=== PATIENT | female | born 1990 | race Caucasian/White ===

== ENCOUNTER 2024-11-29 11:35 | Emergency (ER) | payer OTHER, SELFPAY ==
[2024-11-29 11:41] VITALS: BP 163/99
[2024-11-29 12:37] LABS: Hematocrit 40.8 % (37.0-47.0); Hemoglobin 14.4 g/dL (12.0-16.0); Mean Corp Hgb Conc. 35.3 g/dL (33.0-37.0); Mean Corpuscular Volume 87.9 fL (81.0-99.0); Nucleated Red Blood Cells % 0 %; Platelet Count 263 10^3/uL (130-400); Red Cell Dist. Width 11.7 % (11.5-14.5)
[2024-11-29 12:53] LABS: D-Dimer 0.53 ug/mlFEU (0.00-0.50)
[2024-11-29 12:55] LABS: ALT (SGPT) 15 U/L (0-35); AST (SGOT) 20 U/L (14-36); Albumin 4.8 g/dl (3.5-5.0); Alkaline Phosphatase 47 U/L (38-126); Blood Urea Nitrogen 14 mg/dl (7-17); Calcium 10.0 mg/dl (8.4-10.2); Carbon Dioxide 25 mmol/L (22-30); Chloride 106 mmol/L (98-107); Glucose 125 mg/dl (70-99); Potassium 4.8 mmol/L (3.5-5.1); Sodium 139 mmol/L (135-145); Total Protein 7.5 g/dl (6.3-8.2); eGFR > 60.00
[2024-11-29 13:06] LABS: Troponin I < 0.012 ng/ml
--- NOTE | 2024-11-29 14:04 | ED.GENMED ---
History of Present Illness
General
Chief Complaint: Breathing Problem
Source: patient
Exam Limitations: none
Time Seen by Provider: 11/29/24 11:53
Nursing documentation reviewed up to this point in time: agreed with
History of Present Illness
History of Present Illness:
34-year-old female presenting to the emergency department today with concerns of left lower chest discomfort that occurred last night described as sharp achy seem to be after eating. Has some shortness of breath associated. Came back from [place] 2
weeks ago which was a 10-hour flight. Claims that symptoms are improved today did speak to her with her primary care and sent her to the ER. Denies nausea vomiting or fevers. She did have whiskey and a fatty meal just prior to onset of symptoms.
Review of Systems
Review of Systems
Allergies reviewed?: Yes
All Other Systems: ROS reviewed and negative except as documented in HPI and ROS
Phy Exam
Physical Exam
Physical Exam:
GENERAL: Alert , in no apparent distress
EYE: pupils equal and reactive
NECK: Supple, no significant adenopathy.
ENT: o/p clr, mmm.
CARDIAC: Regular rate and rhythm .
LUNGS: Clear breath sounds bilaterally, no acute respiratory distress, no wheezes/rales/rhonchi
ABDOMEN: Soft, without focal tenderness, no r/g, no cvat
NEUROLOGICAL: Alert and oriented, no focal neuro deficits
SKIN: Warm and dry, skin intact.
MUSCULOSKELETAL: No edema, well perfused.
PSYCH: Normal and appropriate interaction.
Course
Orders/Labs/Results
Orders:
Orders
11/29/24 11:46
ECG [Electrocardiogram (*1)] Urgent
Reason for Study: Shortness of Breath
EKG- Treatment ONCE
11/29/24 12:21
CBC/With Diff [Complete Blood Count/With Diff] Urgent
CMP [Comprehensive Metabolic Panel] Urgent
D-Dimer Urgent
HCG, Serum Qualitative Screen Urgent
Comment: ADD ON
Troponin I Urgent
11/29/24 13:03
CT Chest PE Study Urgent
Comment:
Reason For Exam: chest pain sob, long flight left sided pain
11/29/24 13:38
Add On- LAB Urgent
Tests Added?: HCG
Abnormal Lab Results
11/29/24
12:21
D-Dimer 0.53 H ug/mlFEU
(0.00-0.50)
Glucose 125 H mg/dl
(70-99)
11/29/24 12:21
11/29/24 12:21
Vital Signs
Initial and Last Documented VS:
Initial Vital Signs
Temp Pulse Resp BP Pulse Ox
98.2 F 80 20 163/99 99
11/29/24 11:41 11/29/24 11:41 11/29/24 11:41 11/29/24 11:41 11/29/24 11:41
Last Documented Vital Signs
Temp Pulse Resp BP Pulse Ox
98.2 F 80 20 163/99 99
11/29/24 11:41 11/29/24 11:41 11/29/24 11:41 11/29/24 11:41 11/29/24 14:06
MDM/Problems Addressed
MDM/Problems Addressed:
34-year-old female presenting to the emergency department today with concerns of left lower chest discomfort. Had recent travel on a 10-hour flight a few weeks ago. On arrival hypertensive otherwise vital signs are normal. Patient in no distress
normal heart and lung examination. D-dimer was obtained due to the recent travel and shortness of breath which was very mildly elevated at 0.53. After discussion with the patient plan to get CT PE for further assessment. Otherwise remainder of
workup without emergent findings. EKG nonemergent troponin negative. CT scan showing splenic artery aneurysm but otherwise no emergent findings. The case was discussed with vascular surgery recommending close outpatient follow-up this was
discussed thoroughly with the patient who will follow-up closely. Return precautions were given.
*Pulse Oximetry
SaO2: 99
Oxygen Mode of Delivery: Room air
Patient hypoxic: no (99)
*Critical Care Note
Total Time (30-74mins, 75-104mins- exclusive of procedures): Not Applicable
ED Attending Note
-
Portions of this chart may have been created with voice recognition software.� Occasional wrong word or��sound alike� substitutions may have occurred due to the inherent limitations of voice recognition software.
Discharge Plan
Departure
Patient Disposition: Home (Routine Discharge)
Date of Disposition: 11/29/24
Time of Disposition: 16:15
Patient with high blood pressure during this ER visit?: No
Condition: Good
Covid-19: Not Applicable
Discharge Problem:
Aneurysm of splenic artery
Referrals:
Rj Street III, MD [Active, Vascular Surgery] - Follow up in 5-7 days
Activity Restrictions/Additional Instructions:
You came to the emergency department today with concerns of left lower chest pain and upper abdominal pain. Here you had a reassuring assessment without signs of any life-threatening illness or blood clot. Your CT scan did show a splenic artery
aneurysm. This was discussed with vascular surgery who would like you to follow-up in their office for further assessment. Return for any worsening, new or concerning symptoms.
Interventions
Interventions:
*General Assessment Last Done: 11/29/24 11:41
ED- Cardiac Assessment Last Done: 11/29/24 13:47
ED- Pulmonary Assessment Last Done: 11/29/24 13:47
Discharge Date and Time
Print Language: AZERI
[2024-11-29 14:16] LABS: HCG, Serum Qualitative Screen Negative
== END 2024-11-29 20:36 | disposition home or self-care (01) ==
LOC: EMR 11:35
PROVIDERS: Physician Assistant; EMERGENCY PHYSICIAN Emergency Medicine; FAMILY PHYSICIAN Family Medicine
DX: R07.89 Other chest pain (principal); R06.02 Shortness of breath; I72.8 Aneurysm of other specified arteries; K21.9 Gastro-esophageal reflux disease without esophagitis
CPT/HCPCS: 99284; 71275; 80053; 84484; 84703; 85025; 85379; 93005; Q9967

== ENCOUNTER → 2025-02-02 09:43 | Outpatient (REF) | payer OTHER, SELFPAY | LOC: RAD 09:43 | PROVIDERS: ATTENDING PHYSICIAN Surgery Vascular Surgery; FAMILY PHYSICIAN Family Medicine | DX: I72.8 Aneurysm of other specified arteries (principal) | CPT/HCPCS: 74174; Q9967 ==